=== PATIENT | male | born 1945 | race Caucasian/White ===

== ENCOUNTER 2020-07-07 14:51 | Emergency (ER) | payer MEDICARE ==
[~2020-07-07] VITALS: Ht 193 cm; Wt 83.9 kg
[2020-07-07 14:55] VITALS: BP 114/61
== END 2020-07-07 16:30 | disposition home or self-care (01) ==
LOC: ER 14:51
DX: S00.03XA Contusion of scalp, initial encounter (principal); H53.8 Other visual disturbances; Z88.8 Allergy status to other drugs, medicaments and biological substances; W07.XXXA Fall from chair, initial encounter; Y93.89 Activity, other specified; Y92.89 Other specified places as the place of occurrence of the external cause; Y99.8 Other external cause status